=== PATIENT | female | born 1985 | race Caucasian/White ===

== ENCOUNTER 2018-06-05 20:10 | Inpatient (IN) ==
[2018-06-05] MEDS ORDERED: OXYTOCIN 30 UNITS/500 ML BAG IV PRN (20:37)
[2018-06-05] MEDS ORDERED: LACTATED RINGER'S 1,000 ML IV PRN (20:37)
[2018-06-05] MEDS ORDERED: miSOPROStol 50 MCG TAB PV ONE (20:37)
[2018-06-05 21:22] LABS: Hematocrit (blood only) 35.9 % (37-47); Hemoglobin 12.2 g/dL (12.0-16.0); Mean Corpuscular Volume 87.6 fL (80-100); Mean Platelet Volume 9.6 fL (7.4-10.4); Platelet Count 169 K/uL (130-400); RDW Coefficient of Variation 14.2 % (11.5-14.5); RDW Standard Deviation 45.6 fL (36.4-46.3); White Blood Count 9.87 K/uL (4.8-10.8)
[2018-06-05] MEDS ORDERED: BUTORPHANOL TARTRATE 2 MG/ML VIAL IV PRN (21:24)
--- NOTE | 2018-06-05 21:34 | History & Physical Report ---
Date of Service June 05, 2018 Assessment & Plan (1) IUFD at 20 weeks or more of gestation: 32 yo at 25 weeks, IUFD, US 21.4 wks No s/s of labor No medical problems or history to explain IUFD Discussed blood work, cytogenetic testing and Autopsy of fetus She accepts blood work and cytogenetic but not sure about Autopsy Recommended to obtain more information, she will think about it Discussed delivery route preferably vaginal despite breech presentation, discussed risks of second trimester Csection for her and future OB Plan cervical ripening with Cytotec All questions were answered History of Present Illness Chief Complaint: IUFD Primary Care Provider: NO PCP Patient is a 32 yo at 25 wks, found to have IUFD yesterday in office. She called for no FM for 4 days and HAYES US confirmed no Heat beat, breech and measuring 21.4 wks She was scheduled today for IOL No complaints No HAYES/ Change in vision/ N&V/ Abd pain/ ctxs/ LOF/VB/ fever/ chills No recent trauma/ fall Her has been uncomplicated 1) h/o anxiety, on Celexa 10 mg daily 2) h/o PCOS Denies other medical problems Home Medications Home Medications Medication Instructions Recorded Confirmed Type Celexa 10 PO DAILY 06/05/18 History Patient History Medical History [place] teeth removed Social History Preferred Language: Croatian Communication Ability: Effective Beliefs That Will Affect Care: None marital status: Current Living Situation: Parent Feels Safe at Home: Yes Safety Concerns: Feels Safe At This Time Smoking Status: Never smoker Hx Alcohol Use: No Hx Substance Use: No 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 No h/o STD's, no GC/ chlamydia/ HSV/ Sy Review of Systems All systems reviewed & are unremarkable except as noted in HPI & below Physical Exam Vital Signs (Past 24 Hours): Last Vital Signs Pulse 70 06/05/18 21:24 BP 135/76 06/05/18 21:24 Constitutional: WD/WN, vitals as above well nourished and comfortable Respiratory: normal respiratory effort, lungs clear to auscultation normal respiratory effort Auscultation: lungs clear to auscultation bilaterally Cardiovascular: RRR, no murmur, no edema Rate/Rhythm: regular rate and regular rhythm Heart Sounds: normal S1 and normal S2 Gastrointestinal (Abdomen): Abd soft, nt, gravid Bed side US: single fetus, breech, placenta anterior, No FHR Genitourinary: Cervix cloed, thick and high
[2018-06-05 21:39] LABS: Albumin Level 3.2 gm/dl (3.4-5.0); Calcium 8.9 mg/dl (8.5-10.1); Est GFR (African American) 125.1; Potassium 3.8 mmol/L (3.5-5.1)
[2018-06-05 21:50] LABS: Albumin Globulin Ratio 0.8 (0.9-2); Bilirubin,Total 0.2 mg/dl (0.2-1); Globulin 4.2 gm/dl (2.5-4.0); T4 Free Thyroxine 1.24 ng/dl (0.8-1.6); Total Protein 7.4 gm/dl (6.4-8.2)
[2018-06-05 21:57] LABS: Fibrinogen 440 mg/dl (184-400); INR 0.9 (0.9-1.1); Partial Thromboplastin Ratio 0.9; Partial Thromboplastin Time 24.8 Seconds (21.0-31.0); Prothrombin Time 9.3 Seconds (9.0-12.0)
[2018-06-05 22:27] LABS: Amphetamines+Metham, Urine Neg (Neg); Barbiturates, Urine Neg (Neg); Benzodiazepine, Urine Neg (Neg); Cocaine, Urine Neg (Neg); MDMA (Ecstacy), Urine Neg (Neg); Methadone, Urine Neg (Neg); Opiate, Urine Neg (Neg); Phencyclidine, Urine Neg (Neg)
--- NOTE | 2018-06-05 22:49 | Obstetrical Progress Note ---
Date of Service June 05, 2018 Subjective Patient is reevaluated She has HAYES, no change in vision/ N&V VSS Afebrile VE; 7-8 cm/ 80%/ -1 to 0 with ctx IUPC was not showing ctxs amplitude well, moving out with ctxs, taken out FHR 130's categ I AP: 32 yo at 41 wks, IOL, day 3 EFW per US 4 weeks ago 3400+ gr, HC/ BPD larger Now slow but cervical change, suspected CPD/ Macrosomia Discussed with the patient above IOL, labor progress in details Likes to try with Pitocin IOL Continue to monitor closely Physical Exam Vital Signs (Past 24 Hours): Last Vital Signs Temp 36.7 C 06/05/18 21:24 Pulse 70 06/05/18 21:24 Resp 18 06/05/18 21:24 BP 135/76 06/05/18 21:24
[2018-06-05] MEDS ORDERED: miSOPROStol 50 MCG TAB ONE (23:22)
[2018-06-05] MEDS ORDERED: miSOPROStol 200 MCG TAB ONE (23:38)
[2018-06-05] MEDS ORDERED: Nursing to Pharmacy Communication ONE (23:42)
[2018-06-05] MEDS ORDERED: LORazepam 0.5 MG TAB PO PRN (23:51)
[2018-06-06] MEDS ORDERED: miSOPROStol 200 MCG TAB PO SCH (04:00)
--- NOTE | 2018-06-06 04:50 | Obstetrical Progress Note ---
Date of Service June 06, 2018 Subjective Patient is reevaluated Due for 2nd dose of Cytotec She feels crampy, lasts 2-3 min at a time, pain is 4-/10 No LOF/VB [employer]: ctxs q-12 min 06/05/18 06/05/18 06/05/18 Range/Units 21:35 21:00 21:00 WBC (4.8-10.8) K/uL RBC (4.2-5.4) M/uL Hgb (12.0-16.0) g/dL Hct (37-47) % MCV (80-100) fL MCH (25-34) pg MCHC (32-36) g/dL RDW Std Deviation (36.4-46.3) fL RDW Coeff of Noe (11.5-14.5) % Plt Count (130-400) K/uL MPV (7.4-10.4) fL PT (9.0-12.0) Seconds INR (0.9-1.1) APTT (21.0-31.0) Seconds PTT Ratio Fibrinogen (184-400) mg/dl Hexagonal Phase Confirm Pending Sodium (136-145) mmol/L Potassium (3.5-5.1) mmol/L Chloride (98-107) mmol/L Carbon Dioxide (21-32) mmol/L Anion Gap (3-11) BUN (7-18) mg/dl Creatinine (0.6-1.2) mg/dl Est Cr Clr Drug Dosing ml/min Est GFR ( Amer) Est GFR (Non-Af Amer) BUN/Creatinine Ratio (10-20) Glucose (70-99) mg/dl Estimat Average Glucose Hemoglobin A1c Calcium (8.5-10.1) mg/dl Total Bilirubin (0.2-1) mg/dl AST (15-37) U/L ALT (12-78) U/L Alkaline Phosphatase (45-117) U/L Total Protein (6.4-8.2) gm/dl Albumin (3.4-5.0) gm/dl Globulin (2.5-4.0) gm/dl Albumin/Globulin Ratio (0.9-2) TSH (0.300-4.500) uIu/ml Free T4 (0.8-1.6) ng/dl Free T3 (2.3-4.2) pg/ml Urine Opiates Screen Neg (Neg) Ur Methadone, Qual Neg (Neg) Urine Barbiturates Neg (Neg) Ur Phencyclidine (PCP) Neg (Neg) U Amphetamin/Meth Scrn Neg (Neg) MDMA (Ecstasy) Screen Neg (Neg) U Benzodiazepines Scrn Neg (Neg) Ur Cocaine Metabolite Neg (Neg) U Marijuana (THC) Screen Neg (Neg) Anti-Cardiolipin IgG Ab Pending Anti-Cardiolipin IgA Ab Pending Anti-Cardiolipin IgM Ab Pending RPR CMV IgG Ab Pending CMV IgM Ab Pending HSV I IgG Ab Pending HSV I IgM Ab (IFA) Pending HSV II IgG Pending HSV II IgM Ab (IFA) Pending Rubella IgG Antibody Pending Rubella IgM Antibody Pending Toxoplasma IgG Ab Pending Pending Toxoplasma IgM Ab Pending Toxoplasma Note Pending Blood Type Antibody Screen Mother's Rh Status Maternal Bleed ML KB Cells Counted /Adult RBC Ratio 06/05/18 06/05/18 06/05/18 Range/Units 21:00 21:00 21:00 WBC (4.8-10.8) K/uL RBC (4.2-5.4) M/uL Hgb (12.0-16.0) g/dL Hct (37-47) % MCV (80-100) fL MCH (25-34) pg MCHC (32-36) g/dL RDW Std Deviation (36.4-46.3) fL RDW Coeff of Noe (11.5-14.5) % Plt Count (130-400) K/uL MPV (7.4-10.4) fL PT (9.0-12.0) Seconds INR (0.9-1.1) APTT (21.0-31.0) Seconds PTT Ratio Fibrinogen (184-400) mg/dl Hexagonal Phase Confirm Sodium 137 (136-145) mmol/L Potassium 3.8 (3.5-5.1) mmol/L Chloride 109 H (98-107) mmol/L Carbon Dioxide 22 (21-32) mmol/L Anion Gap 7.0 (3-11) BUN 10 (7-18) mg/dl Creatinine 0.74 (0.6-1.2) mg/dl Est Cr Clr Drug Dosing 112.0 ml/min Est GFR ( Amer) 125.1 Est GFR (Non-Af Amer) 108.0 BUN/Creatinine Ratio 14.0 (10-20) Glucose 88 (70-99) mg/dl Estimat Average Glucose Hemoglobin A1c Calcium 8.9 (8.5-10.1) mg/dl Total Bilirubin 0.2 (0.2-1) mg/dl AST 51 H (15-37) U/L ALT 65 (12-78) U/L Alkaline Phosphatase 149 H (45-117) U/L Total Protein 7.4 (6.4-8.2) gm/dl Albumin 3.2 L (3.4-5.0) gm/dl Globulin 4.2 H (2.5-4.0) gm/dl Albumin/Globulin Ratio 0.8 L (0.9-2) TSH 3.160 (0.300-4.500) uIu/ml Free T4 1.24 (0.8-1.6) ng/dl Free T3 4.38 H (2.3-4.2) pg/ml Urine Opiates Screen (Neg) Ur Methadone, Qual (Neg) Urine Barbiturates (Neg) Ur Phencyclidine (PCP) (Neg) U Amphetamin/Meth Scrn (Neg) MDMA (Ecstasy) Screen (Neg) U Benzodiazepines Scrn (Neg) Ur Cocaine Metabolite (Neg) U Marijuana (THC) Screen (Neg) Anti-Cardiolipin IgG Ab Anti-Cardiolipin IgA Ab Anti-Cardiolipin IgM Ab RPR Pending CMV IgG Ab CMV IgM Ab HSV I IgG Ab HSV I IgM Ab (IFA) HSV II IgG HSV II IgM Ab (IFA) Rubella IgG Antibody Rubella IgM Antibody Toxoplasma IgG Ab Toxoplasma IgM Ab Toxoplasma Note Blood Type Antibody Screen Mother's Rh Status Maternal Bleed ML KB Cells Counted /Adult RBC Ratio 06/05/18 06/05/18 06/05/18 Range/Units 21:00 21:00 21:00 WBC (4.8-10.8) K/uL RBC (4.2-5.4) M/uL Hgb (12.0-16.0) g/dL Hct (37-47) % MCV (80-100) fL MCH (25-34) pg MCHC (32-36) g/dL RDW Std Deviation (36.4-46.3) fL RDW Coeff of Noe (11.5-14.5) % Plt Count (130-400) K/uL MPV (7.4-10.4) fL PT 9.3 (9.0-12.0) Seconds INR 0.9 (0.9-1.1) APTT 24.8 (21.0-31.0) Seconds PTT Ratio 0.9 Fibrinogen 440 H (184-400) mg/dl Hexagonal Phase Confirm Sodium (136-145) mmol/L Potassium (3.5-5.1) mmol/L Chloride (98-107) mmol/L Carbon Dioxide (21-32) mmol/L Anion Gap (3-11) BUN (7-18) mg/dl Creatinine (0.6-1.2) mg/dl Est Cr Clr Drug Dosing ml/min Est GFR ( Amer) Est GFR (Non-Af Amer) BUN/Creatinine Ratio (10-20) Glucose (70-99) mg/dl Estimat Average Glucose Pending Hemoglobin A1c Pending Calcium (8.5-10.1) mg/dl Total Bilirubin (0.2-1) mg/dl AST (15-37) U/L ALT (12-78) U/L Alkaline Phosphatase (45-117) U/L Total Protein (6.4-8.2) gm/dl Albumin (3.4-5.0) gm/dl Globulin (2.5-4.0) gm/dl Albumin/Globulin Ratio (0.9-2) TSH (0.300-4.500) uIu/ml Free T4 (0.8-1.6) ng/dl Free T3 (2.3-4.2) pg/ml Urine Opiates Screen (Neg) Ur Methadone, Qual (Neg) Urine Barbiturates (Neg) Ur Phencyclidine (PCP) (Neg) U Amphetamin/Meth Scrn (Neg) MDMA (Ecstasy) Screen (Neg) U Benzodiazepines Scrn (Neg) Ur Cocaine Metabolite (Neg) U Marijuana (THC) Screen (Neg) Anti-Cardiolipin IgG Ab Anti-Cardiolipin IgA Ab Anti-Cardiolipin IgM Ab RPR CMV IgG Ab CMV IgM Ab HSV I IgG Ab HSV I IgM Ab (IFA) HSV II IgG HSV II IgM Ab (IFA) Rubella IgG Antibody Rubella IgM Antibody Toxoplasma IgG Ab Toxoplasma IgM Ab Toxoplasma Note Blood Type AB Positive Antibody Screen NEGATIVE Mother's Rh Status RH Pos Maternal Bleed 0 ML KB Cells Counted 0 /Adult RBC Ratio 0.00 03// Range/Units 21:00 WBC 9.87 (4.8-10.8) K/uL RBC 4.10 L (4.2-5.4) M/uL Hgb 12.2 (12.0-16.0) g/dL Hct 35.9 L (37-47) % MCV 87.6 (80-100) fL MCH 29.8 (25-34) pg MCHC 34.0 (32-36) g/dL RDW Std Deviation 45.6 (36.4-46.3) fL RDW Coeff of Noe 14.2 (11.5-14.5) % Plt Count 169 (130-400) K/uL MPV 9.6 (7.4-10.4) fL PT (9.0-12.0) Seconds INR (0.9-1.1) APTT (21.0-31.0) Seconds PTT Ratio Fibrinogen (184-400) mg/dl Hexagonal Phase Confirm Sodium (136-145) mmol/L Potassium (3.5-5.1) mmol/L Chloride (98-107) mmol/L Carbon Dioxide (21-32) mmol/L Anion Gap (3-11) BUN (7-18) mg/dl Creatinine (0.6-1.2) mg/dl Est Cr Clr Drug Dosing ml/min Est GFR ( Amer) Est GFR (Non-Af Amer) BUN/Creatinine Ratio (10-20) Glucose (70-99) mg/dl Estimat Average Glucose Hemoglobin A1c Calcium (8.5-10.1) mg/dl Total Bilirubin (0.2-1) mg/dl AST (15-37) U/L ALT (12-78) U/L Alkaline Phosphatase (45-117) U/L Total Protein (6.4-8.2) gm/dl Albumin (3.4-5.0) gm/dl Globulin (2.5-4.0) gm/dl Albumin/Globulin Ratio (0.9-2) TSH (0.300-4.500) uIu/ml Free T4 (0.8-1.6) ng/dl Free T3 (2.3-4.2) pg/ml Urine Opiates Screen (Neg) Ur Methadone, Qual (Neg) Urine Barbiturates (Neg) Ur Phencyclidine (PCP) (Neg) U Amphetamin/Meth Scrn (Neg) MDMA (Ecstasy) Screen (Neg) U Benzodiazepines Scrn (Neg) Ur Cocaine Metabolite (Neg) U Marijuana (THC) Screen (Neg) Anti-Cardiolipin IgG Ab Anti-Cardiolipin IgA Ab Anti-Cardiolipin IgM Ab RPR CMV IgG Ab CMV IgM Ab HSV I IgG Ab HSV I IgM Ab (IFA) HSV II IgG HSV II IgM Ab (IFA) Rubella IgG Antibody Rubella IgM Antibody Toxoplasma IgG Ab Toxoplasma IgM Ab Toxoplasma Note Blood Type Antibody Screen Mother's Rh Status Maternal Bleed ML KB Cells Counted /Adult RBC Ratio Plan to hold on for cytotec until ctxs will space out Continue to monitor Physical Exam Vital Signs (Past 24 Hours): Last Vital Signs Temp 37.1 C 06/06/18 03:46 Pulse 59 L 06/06/18 03:46 Resp 20 06/06/18 03:46 BP 133/78 06/06/18 03:46
[2018-06-06 06:25] LABS: Estimated Average Glucose 103 mg/dl; Hemoglobin A1C 5.2 % (4.5-5.6)
[2018-06-06] MEDS: LACTATED RINGER'S 1,000 ML IV SCH ×2 (08:05→12:53)
[2018-06-06] MEDS ORDERED: CITALOPRAM 20 MG TAB PO SCH (08:58)
[2018-06-06] MEDS ORDERED: CITALOPRAM 20 MG TAB PO STA (09:43)
--- NOTE | 2018-06-06 10:09 | Obstetrical Progress Note ---
Date of Service June 06, 2018 Physical Exam Vital Signs (Past 24 Hours): Last Vital Signs Temp 36.8 C 06/06/18 07:15 Pulse 68 06/06/18 07:33 Resp 20 06/06/18 07:15 BP 114/71 06/06/18 07:33 Genitourinary: Manual OB Exam: + cervical dilation fingertip, + cervical effacement (thick) and + station high Will continue Cytotec
[2018-06-06] MEDS: miSOPROStol 200 MCG TAB SL SCH ×2 (10:22→10:39)
[2018-06-06] MEDS ORDERED: miSOPROStol 25 MCG TAB PV SCH (12:00)
[2018-06-06] MEDS ORDERED: fentaNYL citrate 100 MCG/2 ML VIAL ONE (12:37)
[2018-06-06] MEDS ORDERED: BUPIVACAINE 0.25% 30 ML VIAL ONE (12:37)
[2018-06-06] MEDS ORDERED: ePHEDrine sulfate 50 MG/ML AMP ONE (12:37)
[2018-06-06] MEDS ORDERED: fentaNYL 2MCG/ML ROPIV 1.25MG/ML 100 ML BAG EPI ONE (12:38)
--- NOTE | 2018-06-06 13:27 | Anesthesiology Consultation ---
Date of Service June 06, 2018 Assessment & Plan (1) Encounter for pre-operative examination: Chart Review Chart Review: Acceptable Risk for Surgery and Patient NOT seen in Pre Admission Testing Consults Requested none ASA ASA2 Proposed Anesthesia Anesthesia Type: Labor Epidural History Height/Weight Height: 5 ft 10 in Weight: 64.41 kg Allergies Allergy/AdvReac Type Severity Reaction Status Date / Time No Known Allergies Allergy Unverified 06/06/18 08:33 Medications Home Medications Medication Instructions Recorded Confirmed Last Taken Celexa 10 mg PO DAILY 06/05/18 06/05/18 06/05/18 10:00 PNV cmb#95-ferrous fumarate-FA 1 tab PO DAILY 06/06/18 06/06/18 06/05/18 10:00 [] Active Medications Generic Name Dose Route Start Last Admin Trade Name Freq PRN Reason Stop Dose Admin Butorphanol Tartrate 1 mg 06/05/18 21:24 06/06/18 11:04 Stadol IV 07/05/18 21:23 1 mg Q2HWA PRN Administration Pain Lactated Ringer's 1,000 mls @ 999 mls/hr 06/05/18 20:37 06/06/18 04:45 Lr IV 07/05/18 20:36 150 mls/hr .Q1H1M PRN Infusion (Pre-Anesthesia) Lactated Ringer's 1,000 mls @ 125 mls/hr 06/05/18 20:45 06/06/18 12:57 Lr IV 06/07/18 20:44 999 mls/hr .Q8H JAD Infusion Past Medical History Medical History [place] teeth removed Social History Smoking Status: Never smoker Do You Dip or Chew Tobacco: No Hx Alcohol Use: No Hx Substance Use: No Physical Exam Vital Signs Last Vital Signs Temp 36.8 C 06/06/18 07:15 Pulse 78 06/06/18 13:24 Resp 20 06/06/18 07:15 BP 127/60 06/06/18 13:22 Pulse Ox 98 06/06/18 13:24 Testing Laboratory Results 06/05/18 21:00 06/05/18 21:00 Blood Type AB Positive 06/05/18 21:00 Antibody Screen NEGATIVE 06/05/18 21:00 PT 9.3 Seconds (9.0-12.0) 06/05/18 21:00 INR 0.9 (0.9-1.1) 06/05/18 21:00 APTT 24.8 Seconds (21.0-31.0) 06/05/18 21:00 Hemoglobin A1c 5.2 % (4.5-5.6) 06/05/18 21:00
[2018-06-06] MEDS ORDERED: DiphenhydrAMINE HCL 50 MG/ML VIAL IV PRN (13:29)
[2018-06-06] MEDS ORDERED: LACTATED RINGER'S 1,000 ML IV PRN (13:29)
[2018-06-06] MEDS ORDERED: NALOXONE HCL 1 MG in SODIUM CHLORIDE 0.9% 1000ML 1,000 ML IV PRN (13:29)
[2018-06-06] MEDS ORDERED: fentaNYL 2MCG/ML ROPIV 1.25MG/ML 100 ML BAG EPI PRN (13:29)
[2018-06-06] MEDS ORDERED: NALBUPHINE HCL INJ 10 MG/ML AMP IV PRN (13:29)
[2018-06-06] MEDS ORDERED: ePHEDrine sulfate 50 MG/ML AMP IV PRN (13:29)
[2018-06-06] MEDS ORDERED: NALOXONE HCL 0.4 MG/1 ML VIAL/CARP IV PRN (13:29)
[2018-06-06] MEDS ORDERED: OXYTOCIN 30 UNITS/500 ML BAG IV PRN (14:55)
[2018-06-06] MEDS ORDERED: BENZOCAINE 20% AER SPR 82.5 GM CAN EXT PRN (14:55)
[2018-06-06] MEDS ORDERED: ACETAMINOPHEN 325 MG TAB PO PRN (14:55)
[2018-06-06] MEDS ORDERED: DIPHTHERIA/TETANUS/PERTUSSIS 0.5 ML SYR/VIAL IM ONE (14:55)
[2018-06-06] MEDS ORDERED: HYDROCORTISONE ACETATE 25 MG SUPP PR PRN (14:55)
[2018-06-06] MEDS ORDERED: IBUPROFEN 600 MG TAB PO PRN (14:55)
--- NOTE | 2018-06-06 15:05 | Procedure Note ---
Vaginal Delivery Summary Date of Service June 06, 2018 Delivery Note stillborn male at 25.2 weeks with intact sac. Baby delivered as footling breech weight pending. No cord entanglement or obvious congenital defects on visual exam at time of delivery. Placenta delivered spontaneously and intact. No tears. EBL 100 ml. Final sponge and instrument count are correct. Specimen from placenta and cord obtained for genetic studies. Placenta for exam. Unsure if they want an autopsy. Mom doing well holding baby. Family in room with her as well. May want to go home tonight will re- evaluate for discharge later.
--- NOTE | 2018-06-06 17:01 | Anesthesia Procedure Note ---
Date of Service June 06, 2018 Anesthesia Post Epidural Note Vital Signs Vital Signs: Temp Pulse Resp BP Pulse Ox 37.2 C 68 18 130/73 98 06/06/18 15:10 06/06/18 17:01 06/06/18 15:46 06/06/18 17:01 06/06/18 14:29 Pain Intensity Bilateral Abdomen: Pain Intensity: 0 Notes Mental Status: alert / awake / arousable Patient Amnestic to Procedure: Yes Nausea / Vomiting: adequately controlled Pain: adequately controlled Airway Patency, RR, SpO2: stable & adequate BP & HR: stable & adequate Hydration State: stable & adequate Neuraxial Anesthesia: sensory block resolved Anesthetic Complications: no major complications apparent and Pt Satisfied with anesthetic care Epidural: Removed without complications and With tip intact
[2018-06-06] MEDS ORDERED: DOCUSATE SODIUM 100 MG CAP PO SCH (21:00)
[2018-06-07] MEDS ORDERED: PRENATAL VITAMIN 1 TAB PO SCH (09:00)
[2018-06-07] MEDS ORDERED: BISACODYL 5 MG TABEC PO SCH (20:00)
[2018-06-08] MEDS ORDERED: BISACODYL 10 MG SUPP PR PRN (06:00)
[2018-06-12 00:04] LABS: CMV IgG Antibody <0.60 U/ML; Herpes Simplex Ab IgG-1 < 0.90 INDEX (< 0.90); Herpes Simplex Ab IgG-2 < 0.90 INDEX (< 0.90); Toxoplasma gondii IgG Ab, EIA <0.91
[2018-06-13 10:11] LABS: Anti Cardiolipin Ab IgG <14 GPL (< = 14); Anti Cardiolipin Ab IgM <12 MPL (< = 12); Interpretation DNR; Lupus Anticoagulant Negative (Negative); Toxoplasma Gondii IgM <8.00 AU/mL (<8.00)
--- NOTE | 2018-06-14 14:51 | Discharge Summary ---
HISTORY OF ADMISSION: The patient is a 32-year-old female 1, para 0 who presents on 06/05/2018 with a demise at 25 weeks. Ultrasound confirms a demise measuring 21.4 weeks. She has had no complications. She was admitted and started on Cytotec for cervical ripening and induction. The patient delivered 06/06/2018, double footling breech, male with Apgars 0 and 0. No obvious cause. Genetic studies were done and sent off to pathology, and placenta was sent for exam. The patient was discharged home 6 hours later in stable condition. Home going instructions were given. Condition on discharge is stable. Regular diet on discharge. Follow up will be in the office in 2 weeks.
== END 2018-06-06 20:35 | disposition home or self-care (01) | DRG 807 ==
LOC: MERGE 20:10 → 4S1 20:10

== ENCOUNTER 2019-07-14 23:58 | Inpatient (IN) ==
[2019-07-15] MEDS ORDERED: PENICILLIN G POTASSIUM 6 MU in DEXTROSE 5% 250 ML IV STA (00:42)
[2019-07-15] MEDS ORDERED: OXYTOCIN 30 UNITS/500 ML BAG IV PRN ×3 (00:42→15:26)
--- NOTE | 2019-07-15 00:52 | History & Physical Report ---
Date of Service July 15, 2019 Assessment & Plan (1) Amniotic fluid leakin yo at 38.2 wks with SROM VSS Afebrile h/o IUFD GBS + Uterine ctxs q 3-5 min FHR reassuring Plan to admit, monitor, labs, PCN Discussed expectant management vs augmentation with oxytocin with decreased risk of intraamniotic infection ( with augmentation) She prefers expectant management for 2-3 hours then augmentation if needed All questions were answered (2) Spontaneous rupture of amniotic membranes: History of Present Illness Primary Care Provider: NO PCP Patient is a 33 yo at 38.2 wks who has been leaking clear fluids since 1130 pm No VB/ fever/ chills/ abdominal pain/ CP/SOB/ HAYES/Change in vision Mild irregular ctxs Her has been complicated by 1) IUFD at 25 wks in 2019 2) GBS+ 3) Anxiety: not on meds No other medical problems Allergies Allergy/AdvReac Type Severity Reaction Status Date / Time No Known Allergies Allergy Verified 07/15/19 00:24 Home Medications Home Medications Medication Instructions Recorded Confirmed Type PNV cmb#95-ferrous fumarate-FA 1 tab PO DAILY 06/06/18 07/15/19 History [] aspirin 81 mg PO DAILY 07/15/19 07/15/19 History Patient History Medical History Anxiety IUFD at 20 weeks or more of gestation (Resolved) Varicella Surgical History [place] teeth removed Family History Father Hypertension Hypercholesteremia Grandfather (Paternal) Hypertension Hypercholesteremia Grandmother (Paternal) Diabetes Grandmother (Maternal) Hypothyroidism Breast cancer Mother Hypothyroidism Social History Preferred Language: Yoruba Communication Ability: Effective Air Press Operator Required: No Beliefs That Will Affect Care: None marital status: marital status details: Tito Boyce (32) [phone] Current Living Situation: Spouse Current Living Situation Comment: 2 dogs current occupational status: employed 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 @ [employer] Feels Safe at Home: Yes Safety Concerns: Feels Safe At This Time Smoking Status: Never smoker Hx Alcohol Use: No Hx Substance Use: No OB History IUFD at 25+ wks, IOL in 05/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
[2019-07-15 01:07] LABS: Hematocrit (blood only) 36.7 % (37-47); Hemoglobin 12.2 g/dL (12.0-16.0); Mean Corpuscular Hemoglobin 29.5 pg (25-34); Mean Corpuscular Volume 88.6 fL (80-100); Platelet Count 212 K/uL (130-400); RDW Coefficient of Variation 13.3 % (11.5-14.5); RDW Standard Deviation 43.4 fL (36.4-46.3); Red Blood Count 4.14 M/uL (4.2-5.4); White Blood Count 10.16 K/uL (4.8-10.8)
[2019-07-15] MEDS: LACTATED RINGER'S 1,000 ML IV PRN ×2 (01:13→08:29)
[2019-07-15 01:31] LABS: Mean Corpuscular Hgb Conc 33.2 g/dL (32-36)
[2019-07-15] MEDS: PENICILLIN G POTASSIUM 3 MU in DEXTROSE 5% 100 ML IV PRN ×3 (05:13→13:11)
--- NOTE | 2019-07-15 06:45 | Obstetrical Progress Note ---
Date of Service July 15, 2019 Assessment & Plan Admission and Anticipated Discharge Date Admission Date: July 15, 2019 Subjective Patient is reevaluated Had FHR decels and recovered on her side FHR had been categ I since then She is getting more painful Discussed epidural vs IV Pain meds She likes IV apin meds VE; 2/ 80%/ -2, posterior [place]: ctxs q 3-4 min, pitocin at 2 miu/min Plan to increase pitocin and IV Stadol All questions were answered Results & Data ([facility]) Vital Signs (Past 12 Hours) Vital Signs Temp Pulse Resp BP 07/15/19 06:25 63 18 110/70 07/15/19 06:09 36.6 C 16 07/15/19 05:25 72 16 91/52 L 07/15/19 04:25 36.7 C 72 16 106/62 07/15/19 02:23 37.0 C 73 16 92/51 L 07/15/19 00:15 36.9 C 72 18 106/75
[2019-07-15] MEDS ORDERED: BUTORPHANOL TARTRATE 1 MG/ML VIAL IV ONE (06:46)
[2019-07-15] MEDS ORDERED: ePHEDrine sulfate 50 MG/ML AMP ONE (07:28)
[2019-07-15] MEDS ORDERED: fentaNYL 2MCG/ML ROPIV 1.25MG/ML 100 ML BAG EPI ONE (07:29)
[2019-07-15] MEDS ORDERED: fentaNYL citrate 100 MCG/2 ML VIAL ONE (07:29)
[2019-07-15] MEDS ORDERED: BUPIVACAINE 0.25% 30 ML VIAL ONE (07:29)
--- NOTE | 2019-07-15 07:53 | Anesthesiology Consultation ---
Date of Service July 15, 2019 Assessment & Plan Chart Review Chart Review: Acceptable Risk for Labor Epidural Consults Requested none ASA ASA2 Proposed Anesthesia Anesthesia Type: Labor Epidural Risk / Benefits Reviewed With: PT / POA / Parent / Guardian, Accepts Plan and Informed Consent Obtained History Height/Weight Height: 5 ft 10 in Weight: 72.575 kg Allergies Allergy/AdvReac Type Severity Reaction Status Date / Time No Known Allergies Allergy Verified 07/15/19 00:24 Medications Home Medications Medication Instructions Recorded Confirmed Last Taken PNV cmb#95-ferrous fumarate-FA 1 tab PO DAILY 06/06/18 07/15/19 07/14/19 08:00 [] aspirin 81 mg PO DAILY 07/15/19 07/15/19 07/14/19 08:00 Active Medications Generic Name Dose Route Start Last Admin Trade Name Freq PRN Reason Stop Dose Admin Lactated Ringer's 1,000 mls @ 150 mls/hr 07/15/19 00:42 07/15/19 06:10 Lr IV 07/17/19 00:41 150 mls/hr .Q6H40M PRN Infusion L&D Protocol Protocol Penicillin G Potassium 3 mu/ 106 mls @ 100 mls/hr 07/15/19 00:42 07/15/19 05:13 Dextrose IV 07/25/19 00:41 100 mls/hr Q4H PRN Administration Give until delivery Oxytocin 30 units in 500 mls @ 2 mls/hr 07/15/19 00:54 07/15/19 06:40 Pitocin IV 07/17/19 00:53 0.24 units/hr .Q24H PRN 4 mls/hr Labor Induction/Augmentation Titration Protocol 0.12 UNITS/HR NPO Date Last Intake of Fluids: 07/15/19 Date Last Intake of Solids: 07/15/19 Time Last Intake of Solids: 02:00 Past Medical History Medical History Anxiety IUFD at 20 weeks or more of gestation (Resolved) Varicella Exercise / Class Metabolic Activity II 4-5 Yardwork/Stairs/Walk up hill Past Family History Family History Father Hypertension Hypercholesteremia Grandfather (Paternal) Hypertension Hypercholesteremia Grandmother (Paternal) Diabetes Grandmother (Maternal) Hypothyroidism Breast cancer Mother Hypothyroidism Past Surgical History Surgical History O[place] teeth removed Past Anesthesia History No Hx of Anesthesia Complications and No Family Hx of Anesthesia Complications History of PONV No Hx of PONV and No Hx of Motion Sickness Social History Smoking Status: Never smoker Hx Alcohol Use: No Hx Substance Use: No substance use type: does not use Physical Exam Vital Signs Last Vital Signs Temp 36.5 C 07/15/19 07:19 Pulse 78 07/15/19 07:20 Resp 20 07/15/19 07:19 BP 121/66 07/15/19 07:20 ENMT Mouth: no TMJ abnormality Thyromental Distance: > or= 3.5 Finger Breadths Mallampati Class: II Neck normal visual inspection and trachea midline; neck extension not limited Respiratory normal respiratory effort Auscultation: lungs clear to auscultation bilaterally Cardiovascular Rate/Rhythm: regular rate and regular rhythm Heart Sounds: no murmur Musculoskeletal Spine: normal cervical ROM Extremities: full ROM of extremities Neurologic moves all extremities Psychiatric Orientation: alert and oriented x 3 Testing Laboratory Results 07/15/19 00:57
[2019-07-15] MEDS ORDERED: NALOXONE HCL 0.4 MG/1 ML VIAL/CARP IV PRN (08:17)
[2019-07-15] MEDS ORDERED: NALOXONE HCL 1 MG in SODIUM CHLORIDE 0.9% 1000ML 1,000 ML IV PRN (08:17)
[2019-07-15] MEDS ORDERED: NALBUPHINE HCL INJ 10 MG/ML AMP IV PRN (08:17)
[2019-07-15] MEDS ORDERED: fentaNYL 2MCG/ML ROPIV 1.25MG/ML 100 ML BAG EPI PRN (08:17)
[2019-07-15] MEDS ORDERED: ePHEDrine sulfate 50 MG/ML AMP IV PRN (08:17)
[2019-07-15] MEDS ORDERED: DiphenhydrAMINE HCL 50 MG/ML VIAL IV PRN (08:17)
[2019-07-15] MEDS ORDERED: METOCLOPRAMIDE HCL 20 MG in SODIUM CHLORIDE 0.9% 50 ML IV PRN (08:17)
[2019-07-15] MEDS ORDERED: PROMETHAZINE HCL 25 MG in SODIUM CHLORIDE 0.9% 50 ML IV PRN (08:17)
[2019-07-15] MEDS ORDERED: ONDANSETRON INJ 2 MG/ML 2 ML VIAL IV PRN (08:17)
--- NOTE | 2019-07-15 09:17 | Obstetrical Progress Note ---
Date of Service July 15, 2019 Assessment & Plan Admission and Anticipated Discharge Date Admission Date: July 15, 2019 Physical Exam Genitourinary: Manual OB Exam: + cervical dilation 4 cm, + cervical effacement 80%, + station -2 and + amniotic fluid clear OB Exam Monitor Tracing: + external FHT monitor used, + external uterine monitor used, + category I and + normal FHT variability Results & Data ([facility]) Vital Signs (Past 12 Hours) Vital Signs Temp Pulse Resp BP Pulse Ox 07/15/19 09:12 81 99 07/15/19 09:11 75 101/68 07/15/19 09:07 87 99 07/15/19 09:06 70 103/68 07/15/19 09:02 74 98 07/15/19 09:01 76 96/64 L 07/15/19 08:57 81 98 07/15/19 08:56 72 101/67 07/15/19 08:52 74 97 07/15/19 08:51 73 103/67 07/15/19 08:47 74 99 07/15/19 08:46 66 99/64 L 07/15/19 08:42 74 108/66 99 07/15/19 08:37 73 99 07/15/19 08:36 76 107/65 07/15/19 08:34 71 100/65 07/15/19 08:32 75 106/64 100 07/15/19 08:30 67 104/65 07/15/19 08:28 73 105/69 07/15/19 08:27 68 100 07/15/19 08:26 74 105/72 07/15/19 08:24 65 98/67 L 07/15/19 08:22 73 109/68 100 07/15/19 08:20 72 108/62 07/15/19 08:18 69 97/53 L 07/15/19 08:17 70 100 07/15/19 08:16 72 97/54 L 07/15/19 08:14 73 104/53 L 07/15/19 08:12 75 100 07/15/19 08:10 88 101/69 07/15/19 08:08 77 125/76 07/15/19 08:07 81 100 07/15/19 08:05 88 93 07/15/19 08:04 89 133/63 07/15/19 08:02 79 97 04/29/20 07:20 78 121/66 07/15/19 07:19 36.5 C 78 20 121/66 07/15/19 06:25 63 18 110/70 07/15/19 06:09 36.6 C 16 07/15/19 05:25 72 16 91/52 L 07/15/19 04:25 36.7 C 72 16 106/62 07/15/19 02:23 37.0 C 73 16 92/51 L 07/15/19 00:15 36.9 C 72 18 106/75
--- NOTE | 2019-07-15 14:50 | Anesthesia Procedure Note ---
Date of Service July 15, 2019 Anesthesia Post Epidural Note Vital Signs Vital Signs: Temp Pulse Resp BP Pulse Ox 37.2 C 65 16 100/66 99 07/15/19 13:05 07/15/19 14:46 07/15/19 13:05 07/15/19 14:46 07/15/19 14:32 Pain Intensity Medial Abdomen: Pain Intensity: 0 Notes Mental Status: alert / awake / arousable and participated in evaluation Nausea / Vomiting: adequately controlled Pain: adequately controlled Airway Patency, RR, SpO2: stable & adequate BP & HR: stable & adequate Hydration State: stable & adequate Neuraxial Anesthesia: was administered and sensory block is resolving Anesthetic Complications: no major complications apparent and Pt Satisfied with anesthetic care Epidural: Removed without complications and With tip intact
--- NOTE | 2019-07-15 14:52 | Delivery Summary ---
Vaginal Delivery Summary Date of Service July 15, 2019 Vaginal Delivery Summary Delivery Note live female over intact perineum with delayed cord clamping and Apgars 8/9 weight pending. Cord blood obtained and placenta delivered spontaneously and intact. Placenta sent to pathology due to small size and velamentous cord insertion and short cord with previous IUFD . Small first degree tear repaired with 3/0 Vicryl suture. EBL 200 ml. Final sponge, needle and inst rument count are correct. Mom and baby stable.
[2019-07-15] MEDS ORDERED: ACETAMINOPHEN 325 MG TAB PO PRN (15:26)
[2019-07-15] MEDS ORDERED: BENZOCAINE 20% AER SPR 82.5 GM CAN EXT PRN (15:26)
[2019-07-15] MEDS ORDERED: SUPERCREAM 0.870% 15 GM JAR EXT PRN (15:26)
[2019-07-15] MEDS ORDERED: DIPHTHERIA/TETANUS/PERTUSSIS 0.5 ML SYR/VIAL IM ONE (15:26)
[2019-07-15] MEDS ORDERED: IBUPROFEN 600 MG TAB PO PRN (15:26)
[2019-07-15] MEDS ORDERED: HYDROCORTISONE ACETATE 25 MG SUPP PR PRN (15:26)
[2019-07-15] MEDS: DOCUSATE SODIUM 100 MG CAP PO SCH (20:32)
[2019-07-16 06:51] LABS: Hematocrit (blood only) 31.4 % (37-47); Hemoglobin 10.3 g/dL (12.0-16.0); Mean Corpuscular Hemoglobin 29.3 pg (25-34); Mean Corpuscular Hgb Conc 32.8 g/dL (32-36); Mean Corpuscular Volume 89.5 fL (80-100); Platelet Count 181 K/uL (130-400); RDW Coefficient of Variation 13.7 % (11.5-14.5); RDW Standard Deviation 44.6 fL (36.4-46.3); Red Blood Count 3.51 M/uL (4.2-5.4); White Blood Count 10.78 K/uL (4.8-10.8)
[2019-07-16] MEDS ORDERED: PRENATAL VITAMIN 1 TAB PO SCH (08:00)
[2019-07-16] MEDS: DOCUSATE SODIUM 100 MG CAP PO SCH ×2 (08:37→20:43)
[2019-07-16] MEDS: FERROUS SULFATE 325 MG TAB PO SCH (08:37)
[2019-07-16] MEDS ORDERED: NON-FORMULARY MEDICATION (Pnv Cmb#95-Ferrous Fumarate-Fa [Prenatal] 1 TAB) PO SCH (09:00)
--- NOTE | 2019-07-16 09:01 | Obstetrical Progress Note ---
Date of Service July 16, 2019 Assessment & Plan (1) Normal course: PPd 31 pt doing well anticipate dich tomorrow Results & Data Vital Signs (Past 12 Hours) Vital Signs Temp Pulse Pulse Resp BP Pulse Ox 07/16/19 08:00 36.6 C 65 18 101/65 98 07/16/19 05:00 36.7 C 71 16 92/64 L 97 07/16/19 01:00 36.5 C 63 15 95/58 L 98
[2019-07-16] MEDS ORDERED: IBUPROFEN SUSPENSION 100MG/5ML 120ML PO PRN (09:40)
[2019-07-16] MEDS: FLINTSTONES COMPLETE CHEWABLE TAB PO SCH (10:42)
[2019-07-16] MEDS: IBUPROFEN SUSPENSION 100MG/5ML 120ML PO PRN ×2 (10:42→17:40)
[2019-07-16 16:10] VITALS: O2SAT 99
[2019-07-16] MEDS ORDERED: bisacodyL 5 MG TABEC PO SCH (20:00)
[2019-07-16 20:22] VITALS: TEMP 97.9
[2019-07-17 01:52] VITALS: BP 109/72; PULSE 59
[2019-07-17] MEDS ORDERED: bisacodyL 10 MG SUPP PR PRN (06:00)
[2019-07-17 06:37] LABS: Hematocrit (blood only) 32.9 % (37-47)
[2019-07-17] MEDS: FLINTSTONES COMPLETE CHEWABLE TAB PO SCH (08:50)
[2019-07-17] MEDS: FERROUS SULFATE 325 MG TAB PO SCH (08:50)
[2019-07-17] MEDS: DOCUSATE SODIUM 100 MG CAP PO SCH (08:50)
[2019-07-17] MEDS: IBUPROFEN SUSPENSION 100MG/5ML 120ML PO PRN (08:50)
--- NOTE | 2019-07-17 10:13 | Obstetrical Progress Note ---
Date of Service July 17, 2019 Assessment & Plan Admission and Anticipated Discharge Date Admission Date: July 15, 2019 Subjective PPD#2 doing well out of bed tolerating diet Physical Exam Constitutional: WD/WN, vitals as above comfortable abdomen soft fundus firm no edema neg Dirk's for d/c Results & Data ([facility]) Vital Signs (Past 12 Hours) Vital Signs Temp Pulse Resp BP 07/17/19 01:25 36.6 C 59 L 16 109/72 Laboratory Results Laboratory Results - last 72 hr 07/15/19 07/16/19 07/17/19 00:57 06:26 06:25 WBC 10.16 10.78 RBC 4.14 L 3.51 L Hgb 12.2 10.3 L 11.0 L Hct 36.7 L 31.4 L 32.9 L MCV 88.6 89.5 MCH 29.5 29.3 MCHC 33.2 32.8 RDW Std Deviation 43.4 44.6 RDW Coeff of Noe 13.3 13.7 Plt Count 212 181 MPV 9.0 9.0
== END 2019-07-17 14:22 | disposition home or self-care (01) | DRG 807 ==
LOC: OPB 23:58 → 4S1 23:59 → 4S2 07-15 16:02

== ENCOUNTER 2021-07-14 08:59 | Inpatient (IN) ==
[2021-07-14] MEDS ORDERED: OXYTOCIN 30 UNITS/500 ML BAG IV PRN ×2 (09:42→11:13)
[2021-07-14] MEDS ORDERED: PENICILLIN G POTASSIUM 6 MU in DEXTROSE 5% 250 ML IV STA (09:52)
[2021-07-14] MEDS ORDERED: PATIENT'S HEIGHT AND/OR WEIGHT NEEDED SCH (10:00)
[2021-07-14 10:21] LABS: Hematocrit (blood only) 38.6 % (37-47); Hemoglobin 12.7 g/dL (12.0-16.0); Mean Corpuscular Hemoglobin 30.5 pg (25-34); Mean Corpuscular Hgb Conc 32.9 g/dL (32-36); Mean Corpuscular Volume 92.8 fL (80-100); Mean Platelet Volume 8.8 fL (7.4-10.4); Platelet Count 197 K/uL (130-400); RDW Coefficient of Variation 13.7 % (11.5-14.5); RDW Standard Deviation 46.8 fL (36.4-46.3); Red Blood Count 4.16 M/uL (4.2-5.4)
--- NOTE | 2021-07-14 11:15 | History & Physical Report ---
Date of Service July 14, 2021 Assessment & Plan (1) Spontaneous rupture of amniotic membranes: Plan: Will start Oxytocin (2) History of IUFD: Admission and Anticipated Discharge Date Admission Date: July 14, 2021 History of Present Illness Chief Complaint: spontaneous rupture of membranes Primary Care Provider: GRACIE PCP 35 F P1101 at 36.2 weeks with SROM clear fluid at 9PM last night confirmed by Amnisure on arrival to L&D. Allergies Allergy/AdvReac Type Severity Reaction Status Date / Time No Known Allergies Allergy Verified 07/15/19 00:24 Home Medications Medication Instructions Recorded Confirmed Type vit no.95-ferrous 1 tab PO DAILY 06/06/18 07/15/19 History fumarate 28 mg-folic acid 800 mcg tablet () aspirin 81 mg chewable tablet 81 mg PO DAILY 07/15/19 07/15/19 History ibuprofen 600 mg tablet 600 mg PO Q6H PRN #30 tab 07/17/19 Rx Patient History Medical History Anxiety IUFD at 20 weeks or more of gestation Varicella Surgical History [place] teeth removed Family History Father Hypertension Hypercholesteremia Grandfather (Paternal) Hypertension Hypercholesteremia Grandmother (Paternal) Diabetes Grandmother (Maternal) Hypothyroidism Breast cancer Mother Hypothyroidism Social History Smoking Status: Never smoker Second Hand Exposure: No; Do You Dip or Chew Tobacco: No; Hx Alcohol Use: No Hx Substance Use: No Preferred Language: Moroccan Communication Ability: Effective Refuse Laborer Required: No Beliefs That Will Affect Care: None marital status: marital status details: Tito Boyce (32) [phone] Current Living Situation: Spouse and Family Current Living Situation Comment: 2 dogs current occupational status: employed 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 @ [employer] Other Information That Helps Us Care for You: No Feels Safe at Home: Yes Safety Concerns: Feels Safe At This Time Assistive Devices: None OB History Prior still at 25 weeks delivered vaginally live baby girl 2 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 ago 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 History neg Review of Systems All systems reviewed & are unremarkable except as noted in HPI & below Physical Exam Constitutional: WD/WN, vitals as above Eyes: PERRL, conjunctivae normal, anicteric sclerae Neck: trachea midline, no thyromegaly Respiratory: normal respiratory effort, lungs clear to auscultation Cardiovascular: RRR, no murmur, no edema Skin: no rashes, warm and dry Neurologic: patellar DTR's 2+ bilat, sensation intact Psychiatric: A+Ox3, euthymic affect Genitourinary: no vaginal lesions, no adnexal mass normal external appearance OB Exam Abdomen: + fundal height, + vertex and + estimated weight (6-7 lbs.) Manual OB Exam: + cervical dilation 1 cm, + cervical effacement 50% and + station high OB Exam Monitor Tracing: + external FHT monitor used, + external uterine monitor used, + category I and + normal FHT variability Results & Data ([facility]) Vital Signs (Past 12 Hours) Vital Signs Temp Pulse Resp BP 07/14/21 09:36 36.6 C 89 18 104/70 07/14/21 09:14 36.6 C 89 18 104/70 Laboratory Results Laboratory Results - last 72 hr 07/14/21 10:06 WBC 9.80 RBC 4.16 L Hgb 12.7 Hct 38.6 MCV 92.8 MCH 30.5 MCHC 32.9 RDW Std Deviation 46.8 H RDW Coeff of Noe 13.7 Plt Count 197 MPV 8.8 Code Status & VTE Plan VTE Prophylaxis Plan VTE Prophylaxis will be ordered: No
[2021-07-14] MEDS: LACTATED RINGER'S 1,000 ML IV PRN ×2 (12:17→19:02)
[2021-07-14] MEDS ORDERED: PENICILLIN G POTASSIUM 3 MU in DEXTROSE 5% 100 ML IV PRN (12:42)
--- NOTE | 2021-07-14 17:57 | Labor Progress Brief Note ---
Date of Service July 14, 2021 Assessment & Plan Admission and Anticipated Discharge Date Admission Date: July 14, 2021 Physical Exam Genitourinary: Manual OB Exam: + cervical dilation 2 cm and 3 cm, + cervical effacement 50% and + station -2 OB Exam Monitor Tracing: + external FHT monitor used, + external uterine monitor used, + category I and + normal FHT variability Results & Data ([facility]) Vital Signs (Past 12 Hours) Vital Signs Temp Pulse Resp BP 07/14/21 17:31 82 109/67 07/14/21 16:29 36.6 C 84 18 112/60 07/14/21 15:37 82 118/68 07/14/21 14:30 36.7 C 18 07/14/21 14:29 87 97/52 L 07/14/21 13:28 86 107/69 07/14/21 12:40 36.7 C 75 18 106/67 07/14/21 09:36 36.6 C 89 18 104/70 07/14/21 09:14 36.6 C 89 18 104/70
[2021-07-14] MEDS ORDERED: ePHEDrine sulfate 50 MG/ML AMP ONE (18:40)
[2021-07-14] MEDS ORDERED: BUPIVACAINE 0.25% 30 ML VIAL ONE (18:40)
[2021-07-14] MEDS ORDERED: fentaNYL citrate 100 MCG/2 ML VIAL ONE (18:40)
[2021-07-14] MEDS ORDERED: SODIUM CHLORIDE 0.9% INJ 10 ML VIAL ONE (18:40)
[2021-07-14] MEDS ORDERED: fentaNYL 2MCG/ML ROPIVACAINE 1.25MG/ML 100 ML BAG EPI ONE (18:41)
[2021-07-14] MEDS ORDERED: diphenhydrAMINE 50 MG/ML VIAL IV PRN ×2 (19:50→21:41)
[2021-07-14] MEDS ORDERED: NALBUPHINE HCL INJ 10 MG/ML AMP IV PRN ×2 (19:50→21:41)
[2021-07-14] MEDS ORDERED: NALOXONE HCL 1 MG in SODIUM CHLORIDE 0.9% 1000ML 1,000 ML IV PRN ×2 (19:50→21:41)
[2021-07-14] MEDS ORDERED: NALOXONE HCL 0.4 MG/1 ML VIAL/CARP IV PRN ×2 (19:50→21:41)
[2021-07-14] MEDS ORDERED: ePHEDrine sulfate 50 MG/ML AMP IV PRN ×2 (19:50→21:41)
[2021-07-14] MEDS ORDERED: fentaNYL 2MCG/ML ROPIVACAINE 1.25MG/ML 100 ML BAG EPI PRN (19:50)
[2021-07-14] MEDS ORDERED: ONDANSETRON INJ 2 MG/ML 2 ML VIAL IV PRN ×2 (19:50→21:41)
--- NOTE | 2021-07-14 19:58 | Labor Progress Brief Note ---
Date of Service July 14, 2021 Assessment & Plan Admission and Anticipated Discharge Date Admission Date: July 14, 2021 Physical Exam Genitourinary: Manual OB Exam: + cervical dilation 3 cm, + cervical effacement 70% and + station -2 OB Exam Monitor Tracing: + external FHT monitor used, + category II, + normal FHT variability and + variable decelerations Will stop Oxytocin, IV fluid bolus, re-positioned patient on her side Results & Data ([facility]) Vital Signs (Past 12 Hours) Vital Signs Temp Pulse Resp BP Pulse Ox 07/14/21 19:54 73 107/63 98 07/14/21 19:53 88 86 L 07/14/21 19:49 82 97 07/14/21 19:48 75 106/70 07/14/21 19:46 81 105/72 07/14/21 19:44 80 98 07/14/21 19:43 75 105/69 07/14/21 19:41 80 112/69 07/14/21 19:39 100 H 97 07/14/21 19:30 80 109/66 07/14/21 19:15 36.7 C 20 07/14/21 18:30 36.6 C 18 07/14/21 18:29 83 113/63 07/14/21 17:31 82 109/67 07/14/21 16:29 36.6 C 84 18 112/60 07/14/21 15:37 82 118/68 07/14/21 14:30 36.7 C 18 07/14/21 14:29 87 97/52 L 07/14/21 13:28 86 107/69 07/14/21 12:40 36.7 C 75 18 106/67 07/14/21 09:36 36.6 C 89 18 104/70 07/14/21 09:14 36.6 C 89 18 104/70
--- NOTE | 2021-07-14 20:24 | Labor Progress Brief Note ---
Date of Service July 14, 2021 Assessment & Plan (1) Non-reassuring heart rate or rhythm affecting management of fetus: Plan: Primary section planned Admission and Anticipated Discharge Date Admission Date: July 14, 2021 Physical Exam Genitourinary: OB Exam Monitor Tracing: + external FHT monitor used, + external uterine monitor used, + category II, + late decelerations present and + variable decelerations I spoke to patient who is remote from delivery with Cat 2 FHT with some bleeding noted. Suspect clinical abruption and will proceed with section for non-reassuring FHT. Consents signed Results & Data ([facility]) Vital Signs (Past 12 Hours) Vital Signs Temp Pulse Resp BP Pulse Ox 07/14/21 20:19 97 H 100 07/14/21 20:14 93 H 100 07/14/21 20:13 93 H 111/57 L 07/14/21 20:09 91 H 100 07/14/21 20:08 90 107/55 L 07/14/21 20:04 84 93/50 L 100 07/14/21 19:59 73 102/64 100 07/14/21 19:54 73 107/63 98 07/14/21 19:53 88 86 L 07/14/21 19:49 82 97 07/14/21 19:48 75 106/70 07/14/21 19:46 81 105/72 07/14/21 19:44 80 98 07/14/21 19:43 75 105/69 07/14/21 19:41 80 112/69 07/14/21 19:39 100 H 97 07/14/21 19:30 80 109/66 07/14/21 19:15 36.7 C 20 07/14/21 18:30 36.6 C 18 07/14/21 18:29 83 113/63 07/14/21 17:31 82 109/67 07/14/21 16:29 36.6 C 84 18 112/60 07/14/21 15:37 82 118/68 07/14/21 14:30 36.7 C 18 07/14/21 14:29 87 97/52 L 07/14/21 13:28 86 107/69 07/14/21 12:40 36.7 C 75 18 106/67 07/14/21 09:36 36.6 C 89 18 104/70 07/14/21 09:14 36.6 C 89 18 /70
[2021-07-14] MEDS ORDERED: CITRIC ACID/SODIUM CITRATE 15 ML UDC ONE (20:31)
--- NOTE | 2021-07-14 20:31 | Communication Note ---
Date of Service: July 14, 2021 non reassuring FHT, plan for cessarian section. will use her epidural for c section.
[2021-07-14] MEDS ORDERED: MoRPHine SULFATE PF 1 MG/ML 10 ML AMP/VIAL ONE (20:50)
[2021-07-14] MEDS ORDERED: ceFAZolin 330 MG/ML 1 GM VIAL ONE (20:58)
[2021-07-14] MEDS ORDERED: KETOROLAC 30 MG/ML VIAL ONE (20:58)
[2021-07-14] MEDS ORDERED: OXYTOCIN 10 UNITS/ML 10ML VIAL ONE (20:58)
[2021-07-14] MEDS ORDERED: CITRIC ACID/SODIUM CITRATE 15 ML UDC PO SCH (21:00)
[2021-07-14] MEDS ORDERED: ceFAZolin 2000MG 2,000 MG/15 ML SYR IV SCH (21:00)
[2021-07-14] MEDS ORDERED: LIDOCAINE 2%/EPINEPHRINE 1:200,000 20 ML SDV ONE (21:25)
--- NOTE | 2021-07-14 21:38 | Anesthesia Procedure Note ---
Date of Service July 14, 2021 Anesthesia Post Epidural Note Vital Signs Vital Signs: Temp Pulse Resp BP Pulse Ox 36.7 C 113 H 20 112/56 L 100 07/14/21 19:15 07/14/21 21:35 07/14/21 19:15 07/14/21 21:34 07/14/21 21:35 Notes Mental Status: alert / awake / arousable Nausea / Vomiting: adequately controlled Pain: adequately controlled Airway Patency, RR, SpO2: stable & adequate BP & HR: stable & adequate Hydration State: stable & adequate Neuraxial Anesthesia: was administered and sensory block is resolving Anesthetic Complications: no major complications apparent and Pt Satisfied with anesthetic care Epidural: Removed without complications and With tip intact
--- NOTE | 2021-07-14 21:38 | Anesthesiology Progress Note ---
Date of Service July 14, 2021 Anesthesia Post Procedure Vital Signs Vital Signs: Temp Pulse Resp BP Pulse Ox 07/14/21 21:35 113 H 100 07/14/21 21:34 108 H 112/56 L 07/14/21 21:31 121 H 88 L 07/14/21 21:30 104 H 100 07/14/21 20:29 98 H 100 07/14/21 20:24 109 H 100 07/14/21 20:19 97 H 100 07/14/21 20:14 93 H 100 07/14/21 20:13 93 H 111/57 L 07/14/21 20:09 91 H 100 07/14/21 20:08 90 107/55 L 07/14/21 20:04 84 93/50 L 100 07/14/21 19:59 73 102/64 100 07/14/21 19:54 73 107/63 98 07/14/21 19:53 88 86 L 07/14/21 19:49 82 97 07/14/21 19:48 75 106/70 07/14/21 19:46 81 105/72 07/14/21 19:44 80 98 07/14/21 19:43 75 105/69 07/14/21 19:41 80 112/69 07/14/21 19:39 100 H 97 07/14/21 19:30 80 109/66 07/14/21 19:15 36.7 C 20 07/14/21 18:30 36.6 C 18 07/14/21 18:29 83 113/63 07/14/21 17:31 82 109/67 07/14/21 16:29 36.6 C 84 18 112/60 07/14/21 15:37 82 118/68 07/14/21 14:30 36.7 C 18 07/14/21 14:29 87 97/52 L 07/14/21 13:28 86 107/69 07/14/21 12:40 36.7 C 75 18 106/67 07/14/21 09:36 36.6 C 89 18 104/70 07/14/21 09:14 36.6 C 89 18 104/70 Transfer of Care Handoff Completed per policy Notes Mental Status: alert / awake / arousable Patient Amnestic to Procedure: Yes Nausea / Vomiting: adequately controlled Pain: adequately controlled Airway Patency, RR, SpO2: stable & adequate BP & HR: stable & adequate Hydration State: stable & adequate Anesthetic Complications: no major complications apparent
[2021-07-14] MEDS ORDERED: MEPERIDINE HCL 25 MG/ML CARP/VIAL IV PRN (21:41)
[2021-07-14] MEDS ORDERED: PROMETHAZINE HCL 6.25 MG in SODIUM CHLORIDE 0.9% 50 ML IV PRN (21:41)
[2021-07-14] MEDS ORDERED: NALOXONE HCL 0.08 MG in SYRINGE 1.8 ML IV PRN (21:41)
[2021-07-14] MEDS ORDERED: MoRPHine SULFATE PF 1 MG/ML 10 ML AMP/VIAL INT SPINAL ONE (21:41)
[2021-07-14] MEDS ORDERED: LACTATED RINGER'S 500 ML IV PRN (21:41)
[2021-07-14] MEDS ORDERED: MoRPHine SULFATE 2 MG/ML CARP IV PRN (21:41)
[2021-07-14] MEDS ORDERED: HYDROmorphone INJ 0.5 MG/0.5 ML SYR IV PRN (21:41)
[2021-07-14] MEDS ORDERED: DC INTRASPINAL MORPHINE SCH (21:45)
[2021-07-14] MEDS ORDERED: SODIUM CHLORIDE 0.9% 1000ML 1,000 ML IV SCH (21:45)
[2021-07-14] MEDS ORDERED: NO NARCOTICS OR SEDATIVES SCH (21:45)
--- NOTE | 2021-07-14 21:48 | Post Operative Brief Note ---
Immediate Post Op Note v1 Date of Surgery July 14, 2021 Pre & Post Diagnosis Operation Date: 07/14/21 20:30 Pre-Op Diagnosis: 1. Nonreassuring heart rate 2. Category 2 3. Remote from delivery Post-Op Diagnosis: 1. Nonreassuring heart rate 2. Category 2 3. Remote from delivery 4. Abruption I identified the patient and participated in the time-out.: Yes Procedure Operation Date: 07/14/21 20:30 Actual Procedures p Section in LD for live male at 2051 - Manoj Yin MD Surgeon Manoj Yin MD Belt Polisher Dr. Sanz Estimated Blood Loss 500 Findings Consistent with Post-Op Diagnosis Live male with nuchal cord x1 Apgars 8/9 6lbs. 8 oz. Fluids 1100 Specimens cord blood placenta Drains Marshall Catheter (placed prior to entering OR draining clear yellow urine 575 ml.) Complications none Disposition Accompanied Patient To Recovery: Yes Disposition: L&D Overlapping Procedure I was present for: the critical portions of procedure. I was immediately available: during the entire case. Back up surgeon: used during listed procedure.
[2021-07-14 22:16] LABS: Base Excess Cord Venous Blood -3.2 mEq/L (-7.7-1.9); Cord Venous Blood HCO3 21 mmol/L (18.4-26.8); Cord Venous Blood PCO2 36 mmHg (30.4-57.2); Cord Venous Blood PO2 34 mmHg (14.1-43.3); Cord Venous Blood pH 7.39 (7.20-7.44); O2 Saturation Cord Venous Bld 70.4 % (<68)
[2021-07-15] MEDS ORDERED: HYDROCORTISONE ACETATE 25 MG SUPP PR PRN (00:11)
[2021-07-15] MEDS ORDERED: DIPHTHERIA/TETANUS/PERTUSSIS 0.5 ML SYR/VIAL IM ONE (00:11)
[2021-07-15] MEDS ORDERED: BENZOCAINE 20% AER SPR 82.5 GM CAN EXT PRN (00:11)
[2021-07-15] MEDS ORDERED: SENNA 8.6 MG TAB PO PRN (00:11)
[2021-07-15] MEDS ORDERED: MAGNESIUM HYDROXIDE SUSP 30 ML UDC PO PRN (00:11)
[2021-07-15] MEDS: KETOROLAC 30 MG/ML VIAL IV PRN ×2 (03:29→09:27)
[2021-07-15] MEDS: LACTATED RINGER'S 1,000 ML IV SCH ×2 (06:02→13:45)
[2021-07-15 06:25] LABS: Basophils # (auto) 0.02 K/uL (0-0.2); Basophils % (auto) 0.2 %; Eosinophils # (auto) 0.07 K/uL (0-0.5); Eosinophils % (auto) 0.7 %; Hematocrit (blood only) 33.4 % (37-47); Immature Granulocytes # (auto) 0.05 K/uL (0.00-0.02); Immature Granulocytes % (auto) 0.5 %; Lymphocytes # (auto) 2.03 K/uL (1.2-3.4); Lymphocytes % (auto) 19.9 %; Mean Corpuscular Hemoglobin 29.6 pg (25-34); Mean Corpuscular Hgb Conc 32.9 g/dL (32-36); Mean Platelet Volume 8.5 fL (7.4-10.4); Monocytes # (auto) 0.62 K/uL (0.11-0.59); Monocytes % (auto) 6.1 %; Neutrophils # (auto) 7.39 K/uL (1.4-6.5); Neutrophils % (auto) 72.6 %; Platelet Count 165 K/uL (130-400); RDW Coefficient of Variation 13.5 % (11.5-14.5); RDW Standard Deviation 44.7 fL (36.4-46.3); Red Blood Count 3.71 M/uL (4.2-5.4); White Blood Count 10.18 K/uL (4.8-10.8)
[2021-07-15] MEDS ORDERED: DOCUSATE SODIUM 100 MG CAP PO SCH (08:00)
[2021-07-15] MEDS ORDERED: PRENATAL VITAMIN 1 TAB PO SCH (08:00)
[2021-07-15] MEDS ORDERED: FERROUS SULFATE 325 MG TAB PO SCH (08:00)
[2021-07-15] MEDS: SIMETHICONE 80 MG CHEW PO SCH ×4 (08:05→21:28)
[2021-07-15] MEDS ORDERED: NON-FORMULARY MEDICATION (Pnv Cmb#95-Ferrous Fumarate-Fa [Prenatal] 28 mg iron- 800 mcg Ta PO SCH (09:00)
--- NOTE | 2021-07-15 10:17 | Obstetrical Progress Note ---
Date of Service July 15, 2021 Assessment & Plan (1) delivery delivered: POD #1 pt doing well No complaints Results & Data ([facility]) Vital Signs (Past 12 Hours) Vital Signs Temp Pulse Pulse Resp BP BP Pulse Ox 07/15/21 09:00 20 99 07/15/21 08:00 18 97 07/15/21 07:00 18 97 07/15/21 06:10 15 95 07/15/21 05:10 16 96 07/15/21 04:10 16 95 07/15/21 03:30 36.7 C 76 17 96 07/15/21 03:10 16 94 07/15/21 02:10 16 96 07/15/21 01:10 17 96 07/15/21 00:10 36.8 C 88 16 98/62 L 95 07/14/21 23:40 93 H 96 07/14/21 23:36 92 H 94 07/14/21 23:35 93 H 95 07/14/21 23:34 36.7 C 90 18 99/58 L 07/14/21 23:30 92 H 96 07/14/21 23:25 95 H 96 07/14/21 23:24 100 H 96/62 L 07/14/21 23:20 92 H 97 07/14/21 23:15 93 H 97 07/14/21 23:14 91 H 96/64 L 07/14/21 23:10 87 98 07/14/21 23:05 94 H 97 07/14/21 23:04 94 H 18 90/60 L 07/14/21 23:00 103 H 97 07/14/21 22:55 96 H 97 07/14/21 22:54 93 H 85/50 L 07/14/21 22:50 91 H 98 07/14/21 22:45 101 H 100 07/14/21 22:44 103 H 98/54 L 07/14/21 22:40 91 H 99 07/14/21 22:35 95 H 100 07/14/21 22:34 96 H 18 95/56 L 07/14/21 22:30 90 100 07/14/21 22:25 96 H 100 07/14/21 22:24 92 H 16 97/55 L 07/14/21 22:20 95 H 100
[2021-07-15] MEDS: MULTIVITAMIN CHEWABLE TAB PO SCH (13:27)
[2021-07-15] MEDS ORDERED: MEPERIDINE HCL 50 MG/ML CARP IV PRN (15:41)
[2021-07-15] MEDS ORDERED: diphenhydrAMINE Capsule 25 MG CAP PO PRN (15:41)
[2021-07-15] MEDS ORDERED: PROMETHAZINE HCL 25 MG in SODIUM CHLORIDE 0.9% 50 ML IV PRN (15:41)
[2021-07-15] MEDS ORDERED: ONDANSETRON INJ 2 MG/ML 2 ML VIAL IV PRN (15:41)
[2021-07-15] MEDS ORDERED: diphenhydrAMINE 50 MG/ML VIAL IV PRN (15:41)
[2021-07-15] MEDS ORDERED: IBUPROFEN 600 MG TAB PO PRN (15:41)
[2021-07-15] MEDS ORDERED: KETOROLAC 30 MG/ML VIAL IV PRN (15:41)
[2021-07-15] MEDS: IBUPROFEN SUSPENSION 100MG/5ML 120ML PO PRN ×2 (16:20→21:29)
[2021-07-15] MEDS: oxyCODONE/ACETAMINOPHEN 5mg/325mg TAB PO PRN ×2 (16:20→21:30)
[2021-07-15] MEDS ORDERED: bisacodyL 5 MG TABEC PO SCH (20:00)
[2021-07-15] MEDS: DOCUSATE SODIUM SYRUP 100 MG/10 ML UDC PO SCH (21:28)
[2021-07-16] MEDS: IBUPROFEN SUSPENSION 100MG/5ML 120ML PO PRN ×4 (03:22→23:06)
[2021-07-16] MEDS: oxyCODONE/ACETAMINOPHEN 5mg/325mg TAB PO PRN (03:22)
[2021-07-16 07:05] LABS: Hematocrit (blood only) 32.5 % (37-47); Hemoglobin 10.4 g/dL (12.0-16.0)
[2021-07-16] MEDS: DOCUSATE SODIUM SYRUP 100 MG/10 ML UDC PO SCH ×2 (08:01→20:15)
[2021-07-16] MEDS: MULTIVITAMIN CHEWABLE TAB PO SCH (08:02)
[2021-07-16] MEDS: FERROUS SULFATE 325 MG/7.4 ML UDP PO SCH ×2 (08:02→16:46)
[2021-07-16] MEDS: SIMETHICONE 80 MG CHEW PO SCH ×4 (08:02→20:15)
--- NOTE | 2021-07-16 10:52 | Obstetrical Progress Note ---
Date of Service July 16, 2021 Assessment & Plan (1) delivery delivered: Pt doing well No complaints Tolerating PO food and meds anticipate disch tomorrow Results & Data ([facility]) Vital Signs (Past 12 Hours) Vital Signs Temp Pulse Pulse Resp BP Pulse Ox 07/16/21 08:55 18 07/16/21 08:00 36.6 C 73 18 96/60 L 97 07/15/21 23:25 36.8 C 91 H 18 97/56 L 98
[2021-07-16] MEDS ORDERED: bisacodyL 10 MG SUPP PR PRN (21:36)
[2021-07-17] MEDS: IBUPROFEN SUSPENSION 100MG/5ML 120ML PO PRN (03:02)
[2021-07-17] MEDS ORDERED: IBUPROFEN 200 MG/10 ML UDC PO PRN (03:08)
--- NOTE | 2021-07-17 07:50 | Obstetrical Progress Note ---
Date of Service July 17, 2021 Assessment & Plan Admission and Anticipated Discharge Date Admission Date: July 14, 2021 Subjective Patient is seen and examined. She feels well, no complaints. Pain is under control with oral meds. Ambulating without dizziness Voiding without difficulty Tolerating regular diet with out N&V Flatus + Bleeding is minimal No fever/ chills/ CP/ SOB/ N&V/ Leg pain Breast feeding without problems Lab Results 07/14/21 07/14/21 07/14/21 Range/Units 10:06 11:48 12:04 WBC 9.80 (4.8-10.8) K/uL RBC 4.16 L (4.2-5.4) M/uL Hgb 12.7 (12.0-16.0) g/dL Hct 38.6 (37-47) % MCV 92.8 (80-100) fL MCH 30.5 (25-34) pg MCHC 32.9 (32-36) g/dL RDW Std Deviation 46.8 H (36.4-46.3) fL RDW Coeff of Noe 13.7 (11.5-14.5) % Plt Count 197 (130-400) K/uL MPV 8.8 (7.4-10.4) fL Immature Gran % (Auto) % Neut % (Auto) % Lymph % (Auto) % [place] % (Auto) % Eos % (Auto) % Baso % (Auto) % Neut # (Auto) (1.4-6.5) K/uL Lymph # (Auto) (1.2-3.4) K/uL [place] # (Auto) (0.11-0.59) K/uL Eos # (Auto) (0-0.5) K/uL Baso # (Auto) (0-0.2) K/uL Immature Gran # (Auto) (0.00-0.02) K/uL Cord VBG pH (7.20-7.44) Cord VBG pCO2 (30.4-57.2) mmHg Cord VBG pO2 (14.1-43.3) mmHg Cord VBG HCO3 (18.4-26.8) mmol/L Cord VBG Base Excess (-7.7-1.9) mEq/L Cord VBG O2 Sat (<68) % Barometric Pressure mm/Hg Blood Gas Comments Amniotic Protein POS SARS-CoV-2, RNA, NAAT NEGATIVE (NEGATIVE) 07/14/21 07/15/21 07/16/21 Range/Units 20:52 06:01 06:38 WBC 10.18 (4.8-10.8) K/uL RBC 3.71 L (4.2-5.4) M/uL Hgb 11.0 L 10.4 L (12.0-16.0) g/dL Hct 33.4 L 32.5 L (37-47) % MCV 90.0 (80-100) fL MCH 29.6 (25-34) pg MCHC 32.9 (32-36) g/dL RDW Std Deviation 44.7 (36.4-46.3) fL RDW Coeff of Noe 13.5 (11.5-14.5) % Plt Count 165 (130-400) K/uL MPV 8.5 (7.4-10.4) fL Immature Gran % (Auto) 0.5 % Neut % (Auto) 72.6 % Lymph % (Auto) 19.9 % [place] % (Auto) 6.1 % Eos % (Auto) 0.7 % Baso % (Auto) 0.2 % Neut # (Auto) 7.39 H (1.4-6.5) K/uL Lymph # (Auto) 2.03 (1.2-3.4) K/uL [place] # (Auto) 0.62 H (0.11-0.59) K/uL Eos # (Auto) 0.07 (0-0.5) K/uL Baso # (Auto) 0.02 (0-0.2) K/uL Immature Gran # (Auto) 0.05 H (0.00-0.02) K/uL Cord VBG pH 7.39 (7.20-7.44) Cord VBG pCO2 36 (30.4-57.2) mmHg Cord VBG pO2 34 (14.1-43.3) mmHg Cord VBG HCO3 21 (18.4-26.8) mmol/L Cord VBG Base Excess -3.2 (-7.7-1.9) mEq/L Cord VBG O2 Sat 70.4 H (<68) % Barometric Pressure 734.9 mm/Hg Blood Gas Comments [facility] Amniotic Protein SARS-CoV-2, RNA, NAAT (NEGATIVE) Vital Signs Temp Pulse Pulse Resp BP Pulse Ox 07/16/21 23:30 36.4 C L 71 20 106/65 99 07/16/21 16:30 36.4 C L 84 18 99/65 L 98 07/16/21 08:55 18 07/16/21 08:00 36.6 C 73 18 96/60 L 97 PE: General: Alert, orientedx3, NAD CVS: S1S2 RRR Lungs; CTAB Abd: soft, NT, ND, BS+, fundus firm, below Umbilicus Incision: Clean, dry, intact Perineum intact, Lochia rubra minimal Ext; NT, no edema AP: 35 yo s/p C Section, pod# 3 VSS Afebrile doing well Continue routine postop care Encourage ambulation, PO intake All questions were answered Discussed when to call. D/C home , f/u in office Results & Data ([facility]) Vital Signs (Past 12 Hours) Vital Signs Temp Pulse Resp BP Pulse Ox 07/16/21 23:30 36.4 C L 71 20 106/65 99
--- NOTE | 2021-07-17 08:01 | Operative Report (OR) ---
DATE OF SURGERY: 07/14/2021. PREOPERATIVE DIAGNOSES: at 36 weeks and 2 days with category 2 heart tones, nonreassuring, clinical abruption. POSTOPERATIVE DIAGNOSES: at 36 weeks and 2 days with category 2 heart tones, nonreassuring, clinical abruption plus nuchal cord x1. PROCEDURE: Primary section, low segment transverse. SURGEON: Manoj Yin MD STRUCTURER: Abebe Sanz MD ANESTHESIA: Epidural with Duramorph. ESTIMATED BLOOD LOSS: 500 mL FINDINGS: Live male, Apgars 8 and 9, weight 6 pounds 8 ounces. Nuchal cord x1. CLINICAL HISTORY: The patient is a 35-year-old female, para 1-1-0-1 at 36 weeks and 2 days who had l eakage of fluid last night. She presented to labor and delivery this morning. AmniSure was positive . She was started on Pitocin for delivery. She remained at 3 cm and after her epidural, she had con tinuous recurrent variable decelerations, some of them late with a significant amount of bloody show. Because she had made little or no progress from this morning and with a nonreassuring heart t one remote from term, decision was made to do a section. Informed consent was given. The p atient was given antibiotics preop and a timeout was called prior to the start of procedure. DESCRIPTION OF PROCEDURE: Under satisfactory anesthesia, the patient was prepped and draped in the u sual sterile fashion. A low Pfannenstiel incision was made entering into the abdominal cavity and carter ccessive layers without difficulty. Upon entering the peritoneal cavity, a bladder flap was develope d. There was very little low segment that was developed, so this was a little bit higher up on the u terus. Upon entering into the uterine cavity, clear fluid was noted, but a blood-tinged large clot c aravind out. With the aid of fundal pressure, delivering a live male, there was a nuchal cord x1 reduced at time of delivery. Apgars were 8 and 9, weight 6 pounds 8 ounces. Cord blood was then obta ined followed by spontaneous delivery of the placenta, which was submitted to pathology and then a le ngth of cord was then also submitted to pathology for a complete cord blood gas. Uterus was then exteriorized. Ring forceps were then placed on both angles in the inferior margin. Uterus was closed in double layer closure with 0 Vicryl suture in a continuous interlocking fashion f ollowed by a second imbricating suture. Tubes and ovaries bilaterally were found to be within normal limits. The contents of the pelvic cavity were then irrigated to clear. Uterus was placed back int o the normal anatomical position. The initial sponge, needle, and instrument counts being correct, t he fascia was then reapproximated from both ends using 0 Vicryl suture. The subcuticular space was c losed with 3-0 plain suture, followed by 4-0 Monocryl for the skin along with Steri-Strips, Telfa, an d sponge dressing. Clear urine was noted from the Marshall. The estimated blood loss was 500 mL. Ifeoma grullon sponge, needle, and instrument count being correct, the patient was then placed supine on a stretch er and taken to recovery room in stable condition. Job ID: [id number]
[2021-07-17] MEDS: DOCUSATE SODIUM SYRUP 100 MG/10 ML UDC PO SCH (08:17)
[2021-07-17] MEDS: FERROUS SULFATE 325 MG/7.4 ML UDP PO SCH (08:17)
[2021-07-17] MEDS: SIMETHICONE 80 MG CHEW PO SCH (08:17)
[2021-07-17] MEDS: MULTIVITAMIN CHEWABLE TAB PO SCH (08:18)
--- NOTE | 2021-07-25 05:10 | Operative Report (OR) ---
DATE OF ADMISSION: 07/14/2021. REASON FOR ADMISSION AND HOSPITAL COURSE: The patient is a 35-year-old female, para 1-1-0-1, at 36 w eeks and 2 days with spontaneous rupture of fluid, confirmed with AmniSure upon arriving to labor and delivery. The patient was 3 cm. She had normal variability with a category 2 strip. She was given IV fluid bolus reposition and oxytocin was stopped. The patient was reexamined further in labor and she continued on category 2 strip with heart tones and some bleeding that had started and late decelerations. Decision was then made to perform a primary section. This was done for non reassuring heart rate, remote from delivery, category 2 strip and suspected abruption. She end ed up delivering a live male with nuchal cord x1, Apgars were 8 and 9, and weight was 6 p ounds 8 ounces. Hospital course was unremarkable. The patient was discharged home on 07/17/2021 in stable condition. Homegoing instructions were given. Condition on discharge is stable. Regular diet on discharge. Medications, Percocet and Motrin and f ollow up in the office in 1 week for an incision check. Job ID: [id number]
== END 2021-07-17 09:47 | disposition home or self-care (01) | DRG 786 ==
LOC: OPB 08:59 → 4S1 09:00 → 4E1 07-15 00:13